=== PATIENT | female | born 1955 | race Caucasian/White ===

== ENCOUNTER 2025-03-25 11:51 | Outpatient (CLI) | payer MEDICARE, OTHER, SELFPAY ==
--- NOTE | 2025-03-25 11:30 | DI.RAD_ITS ---
Exam(s) XR ANKLE LT 2V EXAM: XR ANKLE LT 2V CLINICAL HISTORY: F/U L DISTAL FIB FX TECHNIQUE: 2D digital imaging was performed. Three views. COMPARISON: DX XR ANKLE 2 VIEWS BILAT from 01/31/2025 FINDINGS: BONES: Transverse fracture through the tip medial malleolus without visible bony bridging. No bony destructive lesion is seen. Heel spurs. JOINTS:The ankle mortise is normally aligned. SOFT TISSUE: Swelling around the malleoli. IMPRESSION: No change in alignment of lateral malleolar fracture. DATA REPOSITORY: RADIATION DOSE DELIVERED:
== END 2025-03-25 11:52 | disposition home or self-care (01) ==
LOC: DIORS 12:15
PROVIDERS: Visit Provider Physician Assistant
DX: S82.832D Other fracture of upper and lower end of left fibula, subsequent encounter for closed fracture with routine healing (principal); X58.XXXD Exposure to other specified factors, subsequent encounter
CPT/HCPCS: 99213; 73600